=== PATIENT | female | born 1955 | race Caucasian/White ===

== ENCOUNTER 2016-11-24 12:36 | Emergency (ER) | payer MEDICARE, MEDICAID ==
--- NOTE | ~2016-11-24 | ER ---
PATIENT'S NAME: TROY DAIGLE [facility] AGE: 61 Y [address] ROOM: [place] [address] LOCATION: ED ADMIT DATE: 11/24/2016 ER/Outpatient Report DISCHARGE DATE: FAMILY PHYSICIAN: PHYSICIAN, NO ATTENDING PHYSICIAN: Eric Nolasco TIME OF ADMISSION: 12:36. TIME OF EVALUATION: 12:55. CHIEF COMPLAINT: Anxiety, tick bite. HISTORY OF PRESENT ILLNESS: Troy is a 61-year-old female, who presented to the Emergency Room with feelings of increased anxiety, a tick bite that is concerning her. The patient, upon admission, is crying, she is talking in circles about different things. She does have a manager bakery in [place], Dr. Harvey, who she did see last week. He did give her an injection into her thumb, and she does have quite a bit of arthritis. He also noticed that she had a tick bite, this was removed by someone at [facility] here in [place] two or three days prior to that. He did mention just continue to watch this, and follow up with it. The patient reports that she sees Dr. Asencio at [facility] for her psychiatric medications. In the last month, he did start her on a new medication, Brintellix 20 mg daily. She is wondering if this is having an adverse affect on her, she does feel increased anxiety. The patient normally takes Klonopin 1 mg p.o. t.i.d. Her last dose was at 11 a.m. The patient denies any suicidal thoughts, plans, or ideas. She also complains of some discomfort to bilateral jaws, difficult to open her mouth. She denies any chest pain, shortness of breath, dizziness, or feeling lightheaded. The patient has no prior history of heart disease. PAST MEDICAL HISTORY: 1. Fibromyalgia. 2. Panic disorder. 3. Depression. 4. GERD. 5. Postoperative cataract surgery. 6. Hypertension. 7. Arthritis. PATIENT'S NAME: TROY DAIGLE [facility] AGE: 61 Y [address] ROOM: [place] [address] LOCATION: [facility] ADMIT DATE: 11/24/2016 ER/Outpatient Report DISCHARGE DATE: FAMILY PHYSICIAN: PHYSICIAN, NO ATTENDING PHYSICIAN: Eric Nolasco ALLERGIES: 1. IMITREX. 2. CODEINE. CURRENT MEDICATIONS: 1. Dexilant 60 mg one p.o. daily. 2. Norvasc 5 mg one p.o. daily. 3. Klonopin 1 mg t.i.d. 4. Hyzaar/hydrochlorothiazide 100/25 one p.o. daily. 5. Lamictal 200 mg one p.o. daily. 6. Meloxicam 15 mg one p.o. daily. 7. Brintellix 20 mg one p.o. daily. SOCIAL HISTORY: The patient denies any smoking, alcohol use, or drug use. FAMILY HISTORY: Not obtained. REVIEW OF SYSTEMS: All systems were reviewed by myself, and are negative with exception of those noted in the HPI. PHYSICAL EXAMINATION: VITAL SIGNS: Current height is 5 feet 7 inches and current weight is 96.2 kg. Initial blood pressure was 213/80; upon re-examination, it was 169/72, pulse was 68, respirations were within normal limits, and she is 98% on room air. GENERAL: Troy is alert and oriented x4, cooperative, and quite tearful. She tells myself she just feels super anxious, and not exactly sure why she is here. She did see her therapist at 11 a.m. today, this was helpful. Skin overall was within normal limits. EYES: Sclerae are nonicteric. Pupils are equal, round, and reactive to light. EOMs are intact. NOSE: Nares are patent. No congestion is noted. MOUTH AND THROAT: Oropharynx is clear. Tongue is midline. Her throat is just a little irritated, but denies any soreness. To her TMJ bilaterally, there is some discomfort particularly with opening and closing. I do not feel or hear any popping. Upon palpation of the rest of her jaw, it is nontender. NECK: Supple. No lymphadenopathy. The patient denies any vertebral tenderness. CHEST AND LUNGS: Lung sounds are clear throughout. HEART: Regular rate and rhythm without murmur. ABDOMEN: Soft and nontender. NEUROLOGIC: Cranial nerves II through XII are grossly intact. Deep tendon reflexes were 2+. Mood and affect, the patient is very tearful. She does PATIENT'S NAME: TROY DAIGLE [facility] AGE: 61 Y [address] ROOM: [place], [place] [address] LOCATION: [facility] ADMIT DATE: 11/24/2016 ER/Outpatient Report DISCHARGE DATE: FAMILY PHYSICIAN: PHYSICIAN, NO ATTENDING PHYSICIAN: Eric Nolasco answer questions appropriately. She is tracking, but does tend to revisit things. There are no abnormal motor movements. SKIN: To her right posterior rib area, she has a small scab, where the tick was removed. There were no indications of infection. LABORATORY DATA AND DIAGNOSTIC IMAGING: Please note, there were no labs or x-rays performed at this visit. ASSESSMENT: 1. Panic attack. 2. Recent tick bite, healing. 3. Temporomandibular joint pain, bilaterally. PLAN: I did consult with Dr. Nolasco, 2 mg of Ativan p.o. x1 was given. She did rest, and did fall off to sleep for about 30 to 35 minutes. We re-checked her blood pressure, and it was much better. She was complaining of a mild headache, Tylenol 650 mg p.o. x1 was given. She does have a friend named Jennifer, who is a [employer] member who was to meet with her to 02:30 today, and she did just come to the ER. She will go ahead and take her home. I did call [facility], and Dr. Asencio is on vacation, but I did line up an appointment for her at 11:15 on Monday with Kita Goldstein APRN-MICHELET. The patient will continue with the Klonopin one p.o. t.i.d., and use an additional 0.5 mg if needed. If things do get worse, she may need to return to the ER. I do wonder if this new medicine could be contributing, it does not sound like there are any new stressors in her life. The patient's blood pressure is improved. Headache is still there, but neurologically, there are no abnormal symptoms present. The patient is dismissed with Jennifer, and will follow up with Kita on Monday. GRETA WESTBROOK APRN FOR MD LJ BROOKS/candi /[id number] d: 11/24/162052 t: 12/05/16701, OUTPATIENT REPORT
[~2016-11-24 12:36] MED LIST: ABILIFY5 MG PO; ASPIRIN LO-DOSE81 MG PO; ASPIRIN325 MG PO; BUSPAR10 MG PO; CELEBREX200 MG PO; DILAUDID2 MG PO; FLEXERIL10 MG; HYZAAR 100-251 EACH PO; IBUPROFEN800 MG; IBUPROFEN800 MG PO; KLONOPIN1 MG PO; LAMICTAL100 MG PO; LAMICTAL200 MG PO; LASIX40 M1 PO; NEXIUM40 MG PO; NORVASC10 MG; NORVASC5 MG PO; OXYCONTIN EXTEN10 MG PO; PAIN RELIEF650 MG PO; PERCOCET 5-3251 EACH PO; ULTRAM50 MG PO; VALIUM2 MG PO; VIIBRYD20 MG PO; VOLTAREN 1% GE100 GM TOP; XARELTO10 MG PO
== END 2016-11-24 14:50 | disposition disaster alternative care site (69) ==
LOC: GMED 12:36
DX: F41.0 Panic disorder [episodic paroxysmal anxiety] (principal); M26.623 Arthralgia of bilateral temporomandibular joint; S20.96XD Insect bite (nonvenomous) of unspecified parts of thorax, subsequent encounter; M79.7 Fibromyalgia; F32.9 Major depressive disorder, single episode, unspecified; K21.9 Gastro-esophageal reflux disease without esophagitis; I10 Essential (primary) hypertension; M19.91 Primary osteoarthritis, unspecified site; Z98.49 Cataract extraction status, unspecified eye; Z88.5 Allergy status to narcotic agent; Z88.8 Allergy status to other drugs, medicaments and biological substances; Z79.899 Other long term (current) drug therapy

== ENCOUNTER 2016-11-25 08:31 | Emergency (ER) | payer MEDICARE, MEDICAID ==
--- NOTE | ~2016-11-25 | ER ---
PATIENT'S NAME: TROY DAIGLE [facility] AGE: 61 Y [address] ROOM: [place] [address] LOCATION: ED ADMIT DATE: 11/25/2016 ER/Outpatient Report DISCHARGE DATE: 11/25/2016 FAMILY PHYSICIAN: Radha Alexis APRN ATTENDING PHYSICIAN: Eric Nolasco CHIEF COMPLAINT: Headache and anxiousness. HISTORY OF PRESENT ILLNESS: The patient has had a headache for several days. She was here yesterday for similar. She was given Ativan yesterday, felt better, and was discharged. However, her headache today has worsened, is included in both jaws, and radiates down her left side, but is also filled in both shoulders and at the jaw on both sides. She has no chest pain or shortness of breath associated with this. She states that she found a tick on her recently, and it was reported to be quite large. She did keep the tick in a jar, and is in fact, raising it at this time. She is very anxious and concerned. Her review of systems is constantino positive. It is very difficult to get a clear story from her. PAST MEDICAL HISTORY: Documented on the record and reviewed by me. SOCIAL HISTORY: Documented on the record and reviewed by me. MEDICATIONS: Documented on the record and reviewed by me. ALLERGIES: DOCUMENTED ON THE RECORD AND REVIEWED BY ME. REVIEW OF SYSTEMS: All systems were reviewed and are negative except as noted in the HPI. PHYSICAL EXAMINATION: VITAL SIGNS: Blood pressure is 153/74, pulse is 68, respiratory rate is 20, temperature is 98.1, and SpO2 is 99% on room air. Pain is 7/10. GENERAL: A female appearing older than stated age, sitting upright on exam table and emotional, but not in respiratory distress. No outward signs of pain. NEUROLOGIC: Awake and alert. GCS is 14. She is slightly confused. She has very rapid thoughts, and is circumferential in her answering of questions. She is not tangential. Her affect is labile, and her thought content is PATIENT'S NAME: TROY DAIGLE [facility] AGE: 61 Y [address] ROOM: [place] [address] LOCATION: ED ADMIT DATE: 11/25/2016 ER/Outpatient Report DISCHARGE DATE: 11/25/2016 FAMILY PHYSICIAN: Radha Alexis APRN ATTENDING PHYSICIAN: Eric Nolasco unusual. She denies suicidal or homicidal ideation. She denies hallucinations. HEENT: Normocephalic and atraumatic. Eyes are PERRL. Oropharynx is clear. NECK: Supple. Trachea is midline. CHEST: Heart is regular rate and rhythm with no murmurs. LUNGS: Clear to auscultation bilaterally with no rhonchi, wheezes, or rales. ABDOMEN: Soft, nontender, and nondistended. No rebound or guarding or masses. BACK: Normal to inspection and palpation. No CVA tenderness. EXTREMITIES: Warm and well perfused with no appreciable edema. SKIN: On the right posterior back was notable for prior reported tick site with no surrounding rashes. Otherwise, grossly intact with no rashes. LABORATORY DATA AND X-RAYS: Head CT was obtained and unremarkable per Radiology review. The labs were obtained. No appreciable abnormality of CMS that is contributing to her current presentation. CBC was notable for anemia with hemoglobin of 9.6. IMPRESSION: 1. Headache. 2. Anxiety. 3. Anemia of undetermined etiology. EMERGENCY DEPARTMENT COURSE: The patient was seen and evaluated as above. She was treated with fluids, Toradol, Compazine, and Benadryl. She began to feel better overall, but had some akathisia from the Compazine despite Benadryl. She was given a milligram of Ativan and discharged home, with marked improvement in her symptoms. I do not think it would be most pruitt to give her steroids at this time risking worsening of her mental status. I have recommended that she continue with her prescribed doses of medications, and follow up on Monday with Dr. Asencio, her psychiatrist as scheduled. MD MARÍA BROOKS/candi /[id number] d: 11/25/162057 t: 12/05/1602, OUTPATIENT REPORT
[2016-11-25 09:59] LABS: BASOPHIL % 0.2 %; EOSINOPHIL # 0.1 K/uL (0.0-0.5); EOSINOPHIL % 1.5 %; HEMATOCRIT 30.3 % (33.0-46.0); HEMOGLOBIN 9.6 g/dL (10.0-15.0); IMMATURE GRANULOCYTE % 0.1 %; LYMPHOCYTE # 1.1 K/uL (0.8-4.0); MCH 26.2 pg (27.0-34.0); MCHC 31.7 gm/dL (32.0-36.5); MCV 82.6 fl (83.0-98.0); MONOCYTE # 0.6 K/uL (0.0-1.0); MONOCYTE % 7.6 %; MPV 10.3 fl (9.4-12.4); NEUTROPHIL # (ANC) 6.4 K/uL (1.8-7.8); NEUTROPHIL % 77.6 %; NRBC % 0 /100WBC (0-0.00); PLATELET COUNT 300 K/uL (150-450); RBC 3.67 M/uL (3.50-5.50); RDW-CV 17.6 % (11.9-14.6); WBC 8.3 K/uL (4.0-11.0)
[2016-11-25 10:15] LABS: ALBUMIN 3.1 gm/dL (3.5-5.0); ALK PHOS 96 IU/L (33-138); ALT 18 IU/L (12-78); ANION GAP 9.2 (10.0-19.0); AST 31 IU/L (10-40); BLOOD UREA NITROGEN 11 mg/dL (6-24); CALCIUM 8.5 mg/dL (8.5-10.5); CHLORIDE 108 mMol/L (96-110); CO2 28 mMol/L (22-32); CREATININE 0.8 mg/dL (0.5-1.1); ESTIMATED GFR (MDRD EQUATION) > 60; POTASSIUM 4.2 mMol/L (3.7-5.1); SODIUM 141 mMol/L (135-145); TOTAL BILIRUBIN 0.4 mg/dL (0.0-1.5); TOTAL PROTEIN 7.3 g/dL (6.0-8.4)
== END 2016-11-25 10:36 | disposition disaster alternative care site (69) ==
LOC: GMED 08:31
PROVIDERS: Emergency Medicine
DX: R51 Headache (principal); D64.9 Anemia, unspecified; F41.9 Anxiety disorder, unspecified; M79.7 Fibromyalgia; I10 Essential (primary) hypertension; F32.9 Major depressive disorder, single episode, unspecified; K21.9 Gastro-esophageal reflux disease without esophagitis; M19.91 Primary osteoarthritis, unspecified site; Z88.5 Allergy status to narcotic agent; Z88.8 Allergy status to other drugs, medicaments and biological substances; Z79.899 Other long term (current) drug therapy; Z98.890 Other specified postprocedural states
CPT/HCPCS: J0780; J1200; J1885; J2060; J7030

== ENCOUNTER 2016-12-08 06:54 | Emergency (ER) | payer MEDICARE, MEDICAID ==
--- NOTE | ~2016-12-08 | ER ---
PATIENT'S NAME: TROY DAIGLE [facility] AGE: 61 Y [address] ROOM: [place] [address] LOCATION: ED ADMIT DATE: 12/08/2016 ER/Outpatient Report DISCHARGE DATE: 12/08/2016 FAMILY PHYSICIAN: Roddy Ríos MD ATTENDING PHYSICIAN: Cricket Mckenzie TIME OF ARRIVAL: 0654 hours. TIME OF EVALUATION: 0658 hours. CHIEF COMPLAINT: Neck pain. HISTORY OF PRESENT ILLNESS: The patient is a 61-year-old female who presents to the emergency department today with a chief complaint of neck pain. She reports it has been going on for multiple years. She reports she has a long history of accidents from horses and other injuries. She reports she is already scheduled to see Dr. Hair next week and she would just like some medications to get her through to see him. She does report she stopped using fentanyl patches about 3 to 4 weeks ago. She has seen Dr. Weems for these in the past. She has tried heat, Voltaren gel, and ibuprofen. She denies any fevers or chills. Does have some nausea. No vomiting. No diarrhea or constipation. No suicidal ideation. No homicidal ideation. No chest pain. No shortness of breath. No abdominal pain. PAST MEDICAL HISTORY: Fibromyalgia, panic disorder, depression, gastroesophageal reflux disease, hypertension, and arthritis. PAST SURGICAL HISTORY: Cataracts. SOCIAL HISTORY: The patient denies any tobacco, alcohol, or illicit drug use. ALLERGIES: IMITREX AND CODEINE. MEDICATIONS: 1. Dexilant. 2. Norvasc. 3. Klonopin. PATIENT'S NAME: TROY DAIGLE [facility] AGE: 61 Y [address] ROOM: [place], [place] [address] LOCATION: ED ADMIT DATE: 12/08/2016 ER/Outpatient Report DISCHARGE DATE: 12/08/2016 FAMILY PHYSICIAN: Roddy Ríos MD ATTENDING PHYSICIAN: Cricket Mckenzie 4. Hyzaar. 5. Hydrochlorothiazide. 6. Lamictal. 7. Meloxicam. 8. Brintellix. PRIMARY CARE DOCTOR: Jose Rafael Weems MD REVIEW OF SYSTEMS: All systems are reviewed by myself and are negative with the exception of those discussed in the HPI and Past Medical History. PHYSICAL EXAMINATION: VITAL SIGNS: Weight 91.6 kg. Blood pressure 151/78, pulse 86, respiratory rate 16, temperature 99.4, and oxygen saturation 96% on room air. GENERAL: The patient is a 61-year-old female who appears stated age, crying, well developed. HEENT: Head is normocephalic and atraumatic. Pupils are equal, round, and reactive to light. Extraocular motions are intact. Nares with clear discharge bilaterally. TMs are clear. Oropharynx is clear. NECK: Supple. There is no tenderness to palpation. She has good range of motion. CARDIOVASCULAR: Regular rate and rhythm. No murmurs, rubs, or gallops. LUNGS: Clear to auscultation bilaterally. No wheezes, rales, or rhonchi. ABDOMEN: Soft, nontender, and nondistended. No rebound, rigidity, or guarding. MUSCULOSKELETAL: The patient moves all 4 extremities. SKIN: Warm and dry. LABORATORY AND X-RAY DATA: None. IMPRESSION: 1. Acute on chronic neck pain. 2. Initial visit. EMERGENCY DEPARTMENT COURSE: The patient was brought back to the examination room. Seen and evaluated by myself. History and physical performed as described above. I have discussed the results of the history and physical with the patient. She does have an appointment with Dr. Hair. I have asked that she make an appointment. I have written a prescription for Skelaxin as well as a small dose of prednisone. I have discussed return to care instructions including worsening symptoms or any other concerns, to return to the emergency department as soon PATIENT'S NAME: TROY DAIGLE [facility] AGE: 61 Y [address] ROOM: [place], [place] [address] LOCATION: [facility] ADMIT DATE: 12/08/2016 ER/Outpatient Report DISCHARGE DATE: 12/08/2016 FAMILY PHYSICIAN: Roddy Ríos MD ATTENDING PHYSICIAN: Cricket Mckenzie as possible. I have also asked that she follows up with Dr. Roddy Ríos and Dr. Weems. The patient is agreeable. She is without further questions at this time. DISPOSITION,: The patient is discharged to home in good condition. DO VIOLETTA HOBSON/modl /[id number] d: 12/08/16 1403 t: 12/08/16 1439, OUTPATIENT REPORT
== END 2016-12-08 07:45 | disposition disaster alternative care site (69) ==
LOC: GMED 06:54
DX: M54.2 Cervicalgia (principal); G89.29 Other chronic pain; K21.9 Gastro-esophageal reflux disease without esophagitis; F32.9 Major depressive disorder, single episode, unspecified; I10 Essential (primary) hypertension; M79.7 Fibromyalgia; F41.0 Panic disorder [episodic paroxysmal anxiety]; Z98.49 Cataract extraction status, unspecified eye; Z88.5 Allergy status to narcotic agent; Z88.8 Allergy status to other drugs, medicaments and biological substances; Z79.899 Other long term (current) drug therapy; Z87.828 Personal history of other (healed) physical injury and trauma

== ENCOUNTER 2016-12-10 17:20 | Inpatient (IN) | payer MEDICARE, MEDICAID ==
[~2016-12-10] VITALS: Ht 170.2 cm; Wt 91.5 kg
--- NOTE | ~2016-12-10 | ER ---
PATIENT'S NAME: TROY DAIGLE [facility] AGE: 61 Y [address] ROOM: [address] [address] [place] [facility] [place] DATE: 12/10/2016 ER/Outpatient Report DISCHARGE DATE: FAMILY PHYSICIAN: Roddy Ríos MD ATTENDING PHYSICIAN: Roddy Ríos HISTORY OF PRESENT ILLNESS: Troy Daigle is a 61-year-old female, who was initially evaluated by Dr. Nolasco, please refer to his dictation. At 6:00 p.m., shift change, I assumed care. The patient is here for neck and jaw pain, right sided. When I asked her how long it has been present, she says "I have always had neck pain." She was on a fentanyl patch, but stopped approximately 3 to 4 weeks ago. She is scheduled to have an MRI done and scheduled to see Dr. Hair next week. The patient presented stating that she was not going to live here, she was going to be admitted until she had answers and her pain was controlled. The patient denies any fall or injury acutely, but she has had repeated neck injuries in the past. She has been seeing a chiropractor in [facility] as well. The patient was seeing Dr. Weems, but now is seeing Dr. Ríos. She has a history of anxiety. She stopped taking her fentanyl approximately 1 month ago. She did have significant anxiety after that, and then had been taking clonidine, but thought she was taking too much, so stopped that "a few days ago." She did not taper it. When I obtained her history, she is crying consistently. PAST MEDICAL HISTORY: ALLERGIES: TO CODEINE AND IMITREX. CURRENT MEDICATIONS: 1. Norvasc 5 mg daily. 2. Dexilant 60 mg daily. 3. She was on Klonopin 1 mg t.i.d., but quit cold turkey "a few days ago.". 4. Hyzaar/hydrochlorothiazide 100/25 daily. 5. Lamictal 200 mg daily. 6. Brintellix 20 mg daily. 7. Skelaxin prescribed here in the emergency room and was replaced by pharmacy for an equivalent. 8. Gabapentin prescribed by Dr. Ríos yesterday and prednisone 20 mg daily prescribed on the . MEDICAL PROBLEMS: Hypertension, chronic back pain, headaches, depression and anxiety. PRIOR SURGERIES: Gastric bypass surgery and appendectomy. PATIENT'S NAME: TROY DAIGLE [facility] AGE: 61 Y [address] ROOM: [id number] [place], [place] [address] [place] [facility] [place] DATE: 12/10/2016 ER/Outpatient Report DISCHARGE DATE: FAMILY PHYSICIAN: Roddy Ríos MD ATTENDING PHYSICIAN: Roddy Ríos SOCIAL HISTORY: The patient lives here in [place]. She is disabled. Tobacco use, denies. Alcohol use, denies. Drug use, she uses occasional marijuana. FAMILY HISTORY: No pertinent family history identified. REVIEW OF SYSTEMS: All systems reviewed and negative other than what is noted in the HPI. PHYSICAL EXAMINATION: VITAL SIGNS: Height 5 feet 7 inches, weight 90.5 kg. Blood pressure 154/77, pulse 77, respirations 18, temperature 100, and saturations 96% on room air. GENERAL: A 61-year-old female, in mild distress as she is crying. HEENT: Head: Normocephalic, atraumatic. Eyes: Pupils equal and reactive to light and accommodation. Extraocular movements intact. Nose: Mucosa pink. No lesions. Mouth: No lesions. Pharynx benign. NECK: Supple. No lymphadenopathy. No nuchal rigidity. LUNGS: Clear to auscultation. Breath sounds are equal. HEART: Regular rate and rhythm. ABDOMEN: Soft, nondistended, nontender. SKIN: [place], warm, and dry. No lesions or rashes noted. NEURO: No focal deficit. LABORATORY DATA AND X-RAYS: Initially, labs had been ordered and a CT of her cervical spine as well as an EKG. EKG: Normal sinus rhythm at 76 beats per minute. No acute ST elevation or depression. No prior EKG available for comparison. Lactate 1.8. Hemoglobin 10.3, hematocrit 32.7, platelets 332, white count 13.4 with 79% neutrophils. INR 0.92. CRP elevated at 15.70, so I did add blood cultures x2 and those are pending. Sodium 133, potassium 3.5, chloride 101, CO2 of 24, BUN 30, creatinine 1.1, blood sugar 96. Liver enzymes normal. CPK-MB less than 0.5, troponin I less than 0.040. Procalcitonin elevated at 1.59. Sedimentation rate elevated at 106. Head CT without contrast, no acute findings per Radiology. Cervical spine CT without contrast: No acute fracture, reversal of usual lordotic curve, degenerative changes at C5-C6 and C6-C7. UA: Specific gravity 1.010, pH 6.0, trace of leukocytes, 20 to 50 white cells, 2 to 5 red cells, 0 to 2 epithelial cells, moderate bacteria, and white blood cell clumps are present. Urine culture pending. IMPRESSION AND PLAN: 1. Right neck pain. 2. Degenerative disk disease, cervical spine. 3. Anxiety and depression. The patient recently acutely stopped her PATIENT'S NAME: TROY DAIGLE [facility] AGE: 61 Y [address] ROOM: [place] [address] [place]: [facility] [place]MIT DATE: 12/10/2016 ER/Outpatient Report DISCHARGE DATE: FAMILY PHYSICIAN: Roddy Ríos MD ATTENDING PHYSICIAN: Roddy Ríos Klonopin use and recently stopped her fentanyl patch. She may have some component of withdrawal. The patient was given Ativan 0.5 mg IV here in the emergency room. 4. Leukocytosis and possible urinary tract infection. Antibiotics per Dr. Jacinto. Cultures have been drawn. Morphine 5 mg was given for pain with minimal relief, Zofran 4 mg IV, ibuprofen 400 mg p.o., and Ativan 0.5 mg. The patient will be admitted per Dr. Jacinto who evaluated the patient in the emergency room. BRITTA OLSON MD CAR/modl /[id number] d: 12/11/16802 t: 12/12/16309, OUTPATIENT REPORT
--- NOTE | ~2016-12-10 | HP ---
PATIENT'S NAME: TROY DAIGLE [facility] AGE: 61 Y [address] ROOM: [place] [address] [place] [facility] [place]: 12/10/2016 History & Physical DISCHARGE DATE: FAMILY PHYSICIAN: Roddy Ríos MD ATTENDING PHYSICIAN: Roddy Ríos DATE OF SERVICE: HISTORY OF PRESENT ILLNESS: This is a 61-year-old white female, who has been having increasing neck pain with right-sided radiation recently. She states she has had a significant history in the past of repeated neck injuries with degenerative disk disease. She has been seen by two chiropractors in [facility]. She has previously been on fentanyl patch from Dr. Weems, but now sees Dr. Ríos. She stopped the fentanyl approximately one month ago, and had significant anxiety attacks after stopping it. She wanted to stop it because she thought she was taking too much medications. She also relates a similar situation with her Klonopin. She had been taking Klonopin for quite sometime, and thought she was taking too much, so she stopped it a week ago. She has had increased tearfulness and anxiety, and her neck pain has worsened. She was recently seen by Dr. Roddy Ríos, and actually yesterday was started on gabapentin 300 mg twice per day and has an MRI set up at [facility] on 12/14/2016 for her cervical spine. She also has an appointment with Dr. Hair later in the month. She was seen in the Emergency Room for increasing neck pain. CT scan of the head was negative. CT of the neck showed degenerative disk disease, most pronounced at C5-C6 and C6-C7. Interestingly, her CRP was greater than 15 and her sedimentation rate was more than 100. She was found to have pyuria and bacteriuria, and her white count was elevated at 13.4. On further questioning, she states she has a history of positive rheumatoid factor, and has been seen by Dr. Harvey in the past for some sort of arthritis. She states she has had increasing amount of hand pain and swelling in the last few weeks. ALLERGIES TO MEDICATIONS: Include morphine and Imitrex. PAST MEDICAL HISTORY: Significant for 1. GERD. 2. Hypertension. 3. Depression. 4. Chronic neck pain. MEDICATIONS: Include 1. Dexilant 60 mg per day. PATIENT'S NAME: TROY DAIGLE [facility] AGE: 61 Y [address] ROOM: [place] [address] [place] [facility] [place]: 12/10/2016 History & Physical DISCHARGE DATE: FAMILY PHYSICIAN: Roddy Ríos MD ATTENDING PHYSICIAN: Roddy Ríos 2. Norvasc 5 mg per day. 3. Hyzaar 100/25 daily. 4. Lamictal 200 mg per day. 5. Brintellix 20 mg per day. SOCIAL HISTORY: She states that she does not drink alcohol and quit smoking more than 10 years ago. She denies any recent falls. REVIEW OF SYSTEMS: CONSTITUTIONAL: No recent weight gain or weight loss. No fevers or chills. GENITOURINARY: No urinary complaints. CARDIOPULMONARY: No shortness of breath or chest discomfort. PHYSICAL EXAMINATION: GENERAL: She is awake, alert, and tearful. She denies suicidal or homicidal ideations. HEENT: Pupils are equal, round, and reactive to light and accommodation. NECK: Supple with slight right-sided paraspinous muscle tenderness. LUNGS: Clear. HEART: Regular rate and rhythm. ABDOMEN: Soft, nontender, and nondistended. EXTREMITIES: Lower extremities without edema. LABORATORY STUDIES: As described above. IMPRESSION: 1. Right neck pain/degenerative disk disease at multi levels. 2. Anxiety and depression. Recently stopped Klonopin. She may have some withdrawal manifestations. 3. Leukocytosis and pyuria. We will start antibiotics. 4. Increased sedimentation rate and C-reactive protein with history of positive rheumatoid factor and seen by Rheumatology. PLAN: To admit on her regular medications. We will give her a gram of Rocephin tonight and start this daily. We will give her Solu-Medrol x3 doses, and use morphine, Heppner, and Zofran for comfort. We will re-check labs tomorrow. Her urine has been cultured. Dr. Roddy Ríos is to assume care when available. LEV EPSTEIN MD PATIENT'S NAME: TROY DAIGLE [facility] AGE: 61 Y [address] ROOM: [address] [address] [place] [facility] [place]: 12/10/2016 History & Physical DISCHARGE DATE: FAMILY PHYSICIAN: Roddy Ríos MD ATTENDING PHYSICIAN: Roddy Ríos TLP/modl /[id number] D: [id number] T: [id number] HISTORY & PHYSICAL
--- NOTE | ~2016-12-10 | ER ---
PATIENT'S NAME: TROY DAIGLE [facility] AGE: 61 Y [address] ROOM: [address] [address] LOCATION: [facility] ADMIT DATE: 12/10/2016 ER/Outpatient Report DISCHARGE DATE: FAMILY PHYSICIAN: Roddy Ríos MD ATTENDING PHYSICIAN: Roddy Ríos CHIEF COMPLAINT: Neck and right face pain. HISTORY OF PRESENT ILLNESS: Ms. Daigle notes that she has had face and neck pain particularly bad for the last week or so, significantly worse over the last 2 to 3 days. The pain in the jaw and side of the face is relatively new over the course of the last week. She always has some neck pain. She has seen her primary care physician twice yesterday in addition to a chiropractor who did perform some sort of manipulation, but it was too painful and thus did not complete it. She also reports that there were some x-rays that showed significant neck problems and she was seen in the ER for this recently as well. She is very concerned that our workup will not show anything because in her past she had an appendicitis that took months to diagnose and caused her some issues. She is wanting to be admitted for this issue today. She has tried steroids, Benadryl, Toradol and ibuprofen, but those things did not seem to help. She has had some marijuana today and that seemed to give her some relief but once it wore off, she was feeling even worse than before. PAST MEDICAL HISTORY: Documented on the record and reviewed by me. SOCIAL HISTORY: Documented on the record and reviewed by me. MEDICATIONS: Documented on the record and reviewed by me. ALLERGIES: DOCUMENTED ON THE RECORD AND REVIEWED BY ME. REVIEW OF SYSTEMS: All systems were reviewed and negative except as noted in the HPI. PHYSICAL EXAMINATION: VITAL SIGNS: Blood pressure 154/77, pulse is 77, respiratory rate is 18, temp is 100.0, SpO2 is 96% on room air. Pain is rated at 10/10. GENERAL: Elderly female, appearing older than stated age, sitting semirecumbent on the exam chair in obvious pain, no respiratory distress, but PATIENT'S NAME: TROY DAIGLE [facility] AGE: 61 Y [address] ROOM: [address] [address] LOCATION: [facility] ADMIT DATE: 12/10/2016 ER/Outpatient Report DISCHARGE DATE: FAMILY PHYSICIAN: Roddy Ríos MD ATTENDING PHYSICIAN: Roddy Ríos significant emotional disturbance as well. NEUROLOGIC: The patient is awake and alert. GCS is 15. Speech is clear. No asymmetry on exam. There is no drooping of the right face or findings consistent with cranial nerve abnormalities. HEENT: Normocephalic, atraumatic. The TMs are difficult to visualize secondary to cerumen, but the canals do not appear to be abnormal. The eyes are PERRL. The oropharynx is clear. NECK: Supple. Trachea is midline. The right moravian is not tender to palpation over the temporal artery. CHEST: Heart is regular rate and rhythm with no murmurs. LUNGS: Grossly clear to auscultation bilaterally with no rhonchi, wheezes, or rales. ABDOMEN: Soft, nontender, and nondistended. BACK: Normal to inspection and palpation. No spinal tenderness. EXTREMITIES: Warm, well formed, well perfused. No obvious abnormalities otherwise. SKIN: Appears to be intact. No evidence of rashes. LABORATORY DATA: Labs and x-rays are pending at this time. CT of the C-spine in addition to CBC, CMS, inflammatory markers, lactate, troponin, coags, EKG are all pending. IMPRESSION: Right-sided neck, face and jaw pain. EMERGENCY DEPARTMENT COURSE: The patient was seen and evaluated as above. IV was established. She was given Zofran and morphine to help with her pain. Workup was initiated as above for possible nerve compression as well as significant infectious or inflammatory process. No laboratory results are back at this time. The patient is borderline febrile. She is not consistent with meningitis. Temporal giant-cell arteritis appears to be less likely at this time. Handoff was given to Dr. Ayala at 1800 hours with a plan to follow up imaging and labs and to disposition her accordingly. I think this is unlikely to be an atypical presentation of acute coronary syndrome based on the time frame. However EKG and troponin have been ordered. Please see Dr. Ayala's dictation for completion of encounter. MD MARÍA BROOKS/candi PATIENT'S NAME: TROY DAIGLE [facility] AGE: 61 Y [address] ROOM: [place] [address] LOCATION: [facility] ADMIT DATE: 12/10/2016 ER/Outpatient Report DISCHARGE DATE: FAMILY PHYSICIAN: Roddy Ríos MD ATTENDING PHYSICIAN: Roddy Ríos /[id number] d: 12/11/16 1319 t: 12/27/16 1214, OUTPATIENT REPORT
[2016-12-10 18:38] LABS: BASOPHIL % 0.1 %; EOSINOPHIL % 0.3 %; HEMATOCRIT 32.7 % (33.0-46.0); HEMOGLOBIN 10.3 g/dL (10.0-15.0); IMMATURE GRANULOCYTE # 0.1 K/uL (0.0-0.3); IMMATURE GRANULOCYTE % 0.7 %; LYMPHOCYTE # 1.1 K/uL (0.8-4.0); LYMPHOCYTE % 8.5 %; MCH 25.7 pg (27.0-34.0); MCHC 31.5 gm/dL (32.0-36.5); MCV 81.5 fl (83.0-98.0); MONOCYTE # 1.4 K/uL (0.0-1.0); MONOCYTE % 10.6 %; MPV 10.7 fl (9.4-12.4); NEUTROPHIL # (ANC) 10.7 K/uL (1.8-7.8); NEUTROPHIL % 79.8 %; NRBC % 0 /100WBC (0-0.00); PLATELET COUNT 332 K/uL (150-450); RBC 4.01 M/uL (3.50-5.50); RDW-CV 17.6 % (11.9-14.6); WBC 13.4 K/uL (4.0-11.0)
[2016-12-10 18:46] LABS: INR - (THERAPEUTIC) 0.92 (0.92-1.07); PROTIME 9.6 SECONDS (9.8-11.4); PTT 26 SECONDS (25-32)
[2016-12-10 18:56] LABS: ALK PHOS 97 IU/L (33-138); ALT 16 IU/L (12-78); ANION GAP 11.5 (10.0-19.0); AST 16 IU/L (10-40); BLOOD UREA NITROGEN 30 mg/dL (6-24); CALCIUM 8.2 mg/dL (8.5-10.5); CHLORIDE 101 mMol/L (96-110); CO2 24 mMol/L (22-32); CREATININE 1.1 mg/dL (0.5-1.1); ESTIMATED GFR (MDRD EQUATION) 51; POTASSIUM 3.5 mMol/L (3.7-5.1); SODIUM 133 mMol/L (135-145); TOTAL BILIRUBIN 0.3 mg/dL (0.0-1.5); TOTAL PROTEIN 8.2 g/dL (6.0-8.4)
[2016-12-10 20:39] LABS: BILIRUBIN URINE NEGATIVE (NEGATIVE); BLOOD URINE 10 /UL (NEGATIVE); COLOR URINE YELLOW (YELLOW); GLUCOSE URINE NEGATIVE (NEGATIVE); KETONE URINE NEGATIVE (NEGATIVE); LEUKOCYTES URINE 25 /UL (NEGATIVE); NITRITE URINE NEGATIVE (NEGATIVE); PROTEIN URINE 100 mg/dL (NEGATIVE); TURBIDITY URINE CLEAR (CLEAR); UROBILINOGEN URINE NORMAL (NORMAL)
[2016-12-10 20:52] LABS: BACTERIA URINE MODERATE (NEGATIVE)
[2016-12-10 20:53] LABS: EPITHELIAL URINE 0-2 #/HPF (NEGATIVE); WBC URINE 20-50 #/HPF (NEGATIVE)
[2016-12-10 20:54] LABS: WBC CLUMPS URINE MODERATE (NEGATIVE)
--- NOTE | 2016-12-11 03:34 | NUR ---
Significant Event: 61 year old admitted for chronic neck pain that radiates to the right side of her face. Right side of face slightly edematous. WBC was 3.4 Pro-Simeon 1.54 and ESR 106. History of depression, bipolar disorder, mood swings and anxiety. Doesn't smoke or use alcohol but does state she smokes alittle marijuana when it is available. Very talketive when admitted to floor, but was trouble tracking and getting to the point, slightly legarthic. Orientated and pretty stable on her feet, however, states she has fallen many times before. Started on Rocephin IV and 3 doses of Solumedrol Follow up: Labs in am.
[2016-12-11] MEDS ORDERED: TRINTELLIX 10 PO (04:05)
[2016-12-11] MEDS ORDERED: DEXILANT60 MG PO (04:09)
[2016-12-11 05:04] LABS: HEMATOCRIT 29.7 % (33.0-46.0); HEMOGLOBIN 9.1 g/dL (10.0-15.0); MCH 25.4 pg (27.0-34.0); MCHC 30.6 gm/dL (32.0-36.5); MPV 10.5 fl (9.4-12.4); PLATELET COUNT 273 K/uL (150-450); RBC 3.58 M/uL (3.50-5.50); RDW-CV 17.8 % (11.9-14.6); WBC 13.3 K/uL (4.0-11.0)
[2016-12-11 05:29] LABS: ALBUMIN 2.4 gm/dL (3.5-5.0); ANION GAP 10.3 (10.0-19.0); CALCIUM 7.9 mg/dL (8.5-10.5); CREATININE 1.5 mg/dL (0.5-1.1); POTASSIUM 3.3 mMol/L (3.7-5.1); TOTAL PROTEIN 7.1 g/dL (6.0-8.4)
[2016-12-11 05:30] LABS: TOTAL BILIRUBIN 0.2 mg/dL (0.0-1.5)
[2016-12-11 05:35] LABS: ABSOLUTE NEUTROPHIL CT (ANC) 12.8 K/uL (1.8-7.8); BANDED NEUTROPHIL # 3.2 K/uL (0.0-0.1); BANDED NEUTROPHILS % 24 %; LYMPHOCYTE # 0.5 K/uL (0.8-4.0); LYMPHOCYTE % 4 %; SEGMENTED NEUTROPHIL # 9.6 K/uL (1.8-7.8); SEGMENTED NEUTROPHIL % 72 %
--- NOTE | 2016-12-11 16:38 | NUR ---
Significant Event: Patient alert and oriented x3. IV in R) FA running NS at 150ml/hr. Up with SBA with gaitbelt-Hx of falls. C/O pain 6-7/10 in R) side neck that radiates up right side of face and across upper back. R) side of face continues to be slightly edamatous. Also C/O moderate anxiety-used aroma therapy/heat therapy. Morphine 2mg x2 given last at 1345 and [place] 2 tabs last at 1517. Patient is ACHS Accuchecks but is not diabetic- BG 146, 180 today. Potassium level 3.3 this AM- new order for KCl 20mEq PO BID today. Follow up: Continue to monitor pain.
--- NOTE | 2016-12-11 17:39 | NUR ---
I have reviewed and agree with charting done by Florina Sheehan, [facility] student nurse for the shift from [phone].
[2016-12-12 04:08] LABS: BASOPHIL % 0.1 %; HEMATOCRIT 28.8 % (33.0-46.0); HEMOGLOBIN 8.8 g/dL (10.0-15.0); IMMATURE GRANULOCYTE # 0.1 K/uL (0.0-0.3); IMMATURE GRANULOCYTE % 1.1 %; LYMPHOCYTE # 0.9 K/uL (0.8-4.0); LYMPHOCYTE % 8.3 %; MCH 25.4 pg (27.0-34.0); MCHC 30.6 gm/dL (32.0-36.5); MCV 83.2 fl (83.0-98.0); MONOCYTE # 0.7 K/uL (0.0-1.0); MONOCYTE % 6.1 %; MPV 10.4 fl (9.4-12.4); NEUTROPHIL % 84.4 %; NRBC % 0 /100WBC (0-0.00); PLATELET COUNT 280 K/uL (150-450); RBC 3.46 M/uL (3.50-5.50); RDW-CV 17.8 % (11.9-14.6); WBC 10.6 K/uL (4.0-11.0)
[2016-12-12 04:19] LABS: ANION GAP 13.6 (10.0-19.0); CALCIUM 7.8 mg/dL (8.5-10.5); CREATININE 1.2 mg/dL (0.5-1.1); POTASSIUM 3.6 mMol/L (3.7-5.1)
--- NOTE | 2016-12-12 04:34 | NUR ---
Significant Event:Patient very agitated at start of shift, crying and carrying on. States she needs something for anxiety. Call MD and got an order for ativan. This seemed to help. Morphine 2mg and 2 [place] given at 0300 for right neck and facial pain. Up to bathroom with stand-by assist refuses gait-belt. Follow up:Continue to monitor.
[2016-12-12] MEDS ORDERED: ZANAFLEX4 MG PO (12:11)
[2016-12-12] MEDS ORDERED: NEURONTIN300 MG PO (12:11)
[2016-12-12] MEDS ORDERED: DELTASONE20 MG PO (12:13)
--- NOTE | 2016-12-12 12:30 | NUR ---
Met patient at bedside today. Introduced myself and the role of the CM department. Patient states she lives in an apartment on the third floor and it does not have an elevator. She has a dog that she takes outside multiple times a day. Her daughter and her family lives across the street from her apartment. Patient's goal is to return home when she is medically cleared for discharge. She denies any discharge needs at this time and states her daughter and family are able to assist her as needed. CM will continue to follow and offer supports as needed.
--- NOTE | 2016-12-12 16:05 | NUR ---
Significant Event: Patient up with standby assist. [place]/morphine given last at 1305 and patient is due at 1700. Currently patient is sleeping. IV saline locked per orders. Patient given dose of MOM for her bowels at 1305, if no BM in 4 hours, dose may be repeated. Ativan last given at 0607. Last dose of rocephin IV is tonight and then patient is going to switch to oral antibiotics in a.m. Likely home tomorrow. Follow up: Continue to monitor.
--- NOTE | 2016-12-13 03:19 | NUR ---
Significant Event: PT AO. VSS ON RA, AFEBRILE. SALINE LOCK TO R WRIST. UP WITH SUPERVISION. ACHS ACCUCHECKS, WAS 73 @ 2100, ENCOURAGED TO EAT A SNACK- PT HAD TOAST. C/O PAIN TO R NECK/FACE. PRN NORCO AND MORPHINE X2, LAST AT 0315. PT SLEPT WELL FOR ABOUT 5HR THIS SHIFT. NO BM. HAD MILK OF MAG X2 ON PREVIOUS SHIFT. PROBABLY NEEDS A SUPPOSITORY TODAY. Follow up: SUPPOSITORY, PAIN CONTROL, ANXIETY
[2016-12-13] MEDS ORDERED: KEFLEX500 MG PO (09:49)
[2016-12-13] MEDS ORDERED: PROTONIX40 MG PO (09:50)
[2016-12-13] MEDS ORDERED: NORCO 5-325 TA1 EACH PO (09:54)
--- NOTE | 2016-12-13 15:45 | NUR ---
DISCHARGE: D: ORDER RECEIVED THIS AM FOR THE PATIENT TO BE DISCHARGE, PRIOR TO DISCHARGE PATIENT WAS GAVE RECTAL SUPPOSITORY AND A FLEETS ENEMA TO ASSIST WITH A BOWEL MOVEMENT PRIOR TO DISCHARGE. I: DISMISSAL INSTRUCTIONS WERE PREPARED AND REVIEWED WITH THE PATIENT VIRTUALLY. THE FOLLOWING INFORMATION WAS DISCUSSED INCLUDING CECILIO TEACHING SHEETS PROVIDED: E.COLI INFECTION, UNDERSTANDING SEPSIS, TREATING CONSTIPATION KEFLEX, NORCO, AND PREVENTING DVT. DR. EPSTEIN WAS CALLED JUST PRIOR TO DISCHARGE DO TO PATIENT REQUEST A PRESCRIPTION FOR ATIVAN. DR. EPSTEIN CALLED A SMALL PRESCRIPTION INTO [facility] AND IF THE PATIENT NEEDS MORE SHE WILL NEED TO FOLLOW UP WITH DR. ROMERO ON MONDAY. R: THE PATIENT VERBALIZED UNDERSTANDIN OF THE DISMISSAL EDUCATION AT THE TIME OF TEACHING WITH NO FURTHER QUESTIONS. P: THE ABOVE INFORMATION WAS SHARED WITH THE PRIMARY NURSE AND THE CHARGE NURSE THAT THE PATIENT'S DISMISSAL EDUCATION WAS COMPLETED. THE PATIENT IS READY FOR DISCHARGE TO THE FRONT DOOR VIA WHEEL CHAIR BY NURSING STAFF.
== END 2016-12-13 16:45 | disposition disaster alternative care site (69) | DRG 872 ==
LOC: GMED 17:20 → GMSU 20:29
PROVIDERS: Emergency Medicine; Family Medicine; ADMIT Family Medicine
DX: A41.51 Sepsis due to Escherichia coli [E. coli] (principal); I10 Essential (primary) hypertension; N39.0 Urinary tract infection, site not specified; M54.2 Cervicalgia; F41.8 Other specified anxiety disorders; Z91.14 Patient's other noncompliance with medication regimen; K21.9 Gastro-esophageal reflux disease without esophagitis; B96.20 Unspecified Escherichia coli [E. coli] as the cause of diseases classified elsewhere
CPT/HCPCS: J0696; J2060; J2270; J2405; J2920; J7030; J7040; J7050

== ENCOUNTER → 2016-12-14 | Outpatient (CLI) | payer MEDICARE, MEDICAID ==
[~2016-12-14] MED LIST changes: +DELTASONE20 MG PO; +DEXILANT60 MG PO; +KEFLEX500 MG PO; +NEURONTIN300 MG PO; +NORCO 5-325 TA1 EACH PO; +PROTONIX40 MG PO; +TRINTELLIX 10 PO; +ZANAFLEX4 MG PO
== END | disposition disaster alternative care site (69) ==
LOC: GRAD 14:53
DX: M54.2 Cervicalgia (principal); M47.892 Other spondylosis, cervical region

== ENCOUNTER 2017-02-05 09:53 | Emergency (ER) | payer MEDICARE, MEDICAID ==
--- NOTE | ~2017-02-05 | ER ---
PATIENT'S NAME: TROY DAIGLE [facility] AGE: 61 Y [address] ROOM: [place] [address] LOCATION: [facility] ADMIT DATE: 02/05/2017 ER/Outpatient Report DISCHARGE DATE: 02/05/2017 FAMILY PHYSICIAN: Roddy Ríos MD ATTENDING PHYSICIAN: Cricket Mckenzie Time of Arrival: 0953 hours Time of Evaluation: 0954 hours CHIEF COMPLAINT: Headache. HISTORY OF PRESENT ILLNESS: The patient is a 61-year-old female who presents to the emergency department today with a chief complaint of headache. She reports she also has neck pain with this. The patient has a long history of chronic neck pain that causes her headaches. She reports that this pain came on last night. Denies any fevers. Does have some chills. Does have some nausea. No vomiting. No diarrhea or constipation. Does have some photophobia. It is a dull pain. It is currently mild to moderate in severity. She also has episodes of sharpness back of her neck. It is worse with movement. The patient denies this is the worst headache of her life. There is no thunderclap headache. It is not sudden onset. PAST MEDICAL HISTORY: Chronic neck problems, migraines, fibromyalgia, panic disorder, depression, gastroesophageal reflux disease, arthritis, and hypertension. PAST SURGICAL HISTORY: Cataracts. SOCIAL HISTORY: The patient denies any tobacco, alcohol, or illicit drug use. ALLERGIES: IMITREX AND CODEINE. MEDICATIONS: Please see list. PRIMARY CARE DOCTOR: Jose Rafael Weems MD REVIEW OF SYSTEMS: All systems are reviewed by myself and negative with the exception of those PATIENT'S NAME: TROY DAIGLE [facility] AGE: 61 Y [address] ROOM: [place] [address] LOCATION: ED ADMIT DATE: 02/05/2017 ER/Outpatient Report DISCHARGE DATE: 02/05/2017 FAMILY PHYSICIAN: Roddy Ríos MD ATTENDING PHYSICIAN: Cricket Mckenzie discussed in HPI and past medical history. PHYSICAL EXAMINATION: VITAL SIGNS: Weight 92.3 kg, blood pressure 195/101, pulse 62, respiratory rate 18, temperature 97.9, oxygen saturation 99% on room air. GENERAL: The patient is a 61-year-old female, appears stated age, in no acute distress. Well developed, well nourished. HEENT. Head: Normocephalic, atraumatic. Pupils are equal, round, and reactive to light. Extraocular motions are intact. Nares are patent bilaterally. Oropharynx is clear. NECK: Supple. She does have tenderness to palpation in bilateral paraspinal musculature. There is no nuchal rigidity. CARDIOVASCULAR: Regular rate and rhythm. No murmurs, rubs, or gallops. LUNGS: Clear to auscultation bilaterally. No wheezes, rales, or rhonchi. ABDOMEN: Soft, nontender, and nondistended. No rebound, rigidity, or guarding. MUSCULOSKELETAL: The patient moves all 4 extremities. Ambulates with steady gait. SKIN: Warm and dry. No rashes or lesions noted. LABORATORY DATA AND X-RAYS: None. IMPRESSION: 1. Acute on chronic neck pain. 2. Initial visit. EMERGENCY DEPARTMENT COURSE: The patient was brought back to the examination room. Seen and evaluated by myself. History and physical are performed as described above. I have discussed results with history and physical with the patient. She reports she has seen Dr. Hair for her neck. They are attempting conservative treatments. She does report she has an appointment with Dr. Gordillo for a neck injection. She does report she is out of her Zanaflex. She is requesting a refill. I have written a prescription for Zanaflex for home. I have discussed return to care instructions including worsening symptoms or any other concerns to return to the emergency department as soon as possible. I have asked she follows up with the primary care doctor in two three days for re-evaluation as well. The patient is agreeable without further questions. DISPOSITION: The patient discharged to home in good condition. PATIENT'S NAME: TROY DAIGLE [facility] AGE: 61 Y [address] ROOM: [place] [address] LOCATION: ED ADMIT DATE: 02/05/2017 ER/Outpatient Report DISCHARGE DATE: 02/05/2017 FAMILY PHYSICIAN: Roddy Ríos MD ATTENDING PHYSICIAN: Cricket Mckenzie DO VIOLETTA HOBSON/modl /[id number] d: 02/05/17 1852 t: 02/10/17 0649, OUTPATIENT REPORT
== END 2017-02-05 10:30 | disposition disaster alternative care site (69) ==
LOC: GMED 09:53
DX: G89.29 Other chronic pain (principal); M54.2 Cervicalgia; I10 Essential (primary) hypertension; F41.0 Panic disorder [episodic paroxysmal anxiety]; F32.9 Major depressive disorder, single episode, unspecified; M19.90 Unspecified osteoarthritis, unspecified site; M79.7 Fibromyalgia; K21.9 Gastro-esophageal reflux disease without esophagitis; Z88.5 Allergy status to narcotic agent; Z88.8 Allergy status to other drugs, medicaments and biological substances; Z79.1 Long term (current) use of non-steroidal anti-inflammatories (NSAID); Z79.899 Other long term (current) drug therapy
CPT/HCPCS: J1885

== ENCOUNTER 2017-02-06 13:01 | Emergency (ER) | payer MEDICARE, MEDICAID ==
--- NOTE | ~2017-02-06 | ER ---
PATIENT'S NAME: TROY DAIGLE [facility] AGE: 61 Y [address] ROOM: [place] [address] LOCATION: [facility] ADMIT DATE: 02/06/2017 ER/Outpatient Report DISCHARGE DATE: 02/06/2017 FAMILY PHYSICIAN: PHYSICIAN, NO ATTENDING PHYSICIAN: Rhonda Ayala Time of Arrival: 1311. Time of Evaluation: 1311 pm. CHIEF COMPLAINT: Headache and neck pain. HISTORY OF PRESENT ILLNESS: The patient states she has been having problems with a headache for the last 7 days. Has had neck problems. Does have a history of neck problems that causes headaches. This pain is similar to what she has had before. She states she has had some chills off and on. Has been nauseated, but no vomiting. She was here last night. Got some Toradol and Valium. She is scheduled to see Dr. Apodaca for epidural injection on . She states she has taken some ibuprofen without any relief. She reports that she is supposed to be wearing a collar but she feels like the collar makes things worse so she has not been wearing it. ALLERGIES: CODEINE, IMITREX. PAST MEDICATIONS: Are on her chart and reviewed by me. PAST MEDICAL HISTORY: Cervical disk disease C5, C6, and C7; migraine headaches; hypertension; depression fibromyalgia. PAST SURGERY: Shoulder surgery, appendectomy, gastric bypass, bilateral knee replacements. Reports she is postmenopausal. Denies the use of tobacco, drugs, or alcohol. REVIEW OF SYSTEMS: Negative other than those mentioned in the HPI. PHYSICAL EXAMINATION: VITAL SIGNS: She weighed 95.5 kg. Blood pressure was 189/81, pulse of 56, respirations 20, temperature of 98.4 tympanic, O2 saturation was 98% on room air. Yvonne Coma Scale is 15. GENERAL: She is awake, alert, and oriented x4. She moves all extremities PATIENT'S NAME: TROY DAIGLE [facility] AGE: 61 Y [address] ROOM: [place] [address] LOCATION: [facility] ADMIT DATE: 02/06/2017 ER/Outpatient Report DISCHARGE DATE: 02/06/2017 FAMILY PHYSICIAN: PHYSICIAN, NO ATTENDING PHYSICIAN: Rhonda Ayala strongly and equally. SKIN: [place], warm, and dry. RESPIRATIONS: Even and nonlabored. HEENT: Pupils are equal reactive to light. Extraocular movement is intact. TMs are pearly kyle. Nasal is boggy. Oropharynx is clear. NECK: Supple. No lymphadenopathy. LUNGS: Lung sounds are clear throughout. HEART: Regular rate and rhythm. ABDOMEN: Soft, nondistended. Bowel sounds are present. EMERGENCY DEPARTMENT COURSE: Saline lock was initiated. Fluids of normal saline was started. She was given Toradol 15 mg IV, Benadryl 50 mg IV, and Compazine 10 mg IV. She rested quietly in the room. Fluids were allowed to infuse. Did have some relief on discharge. IMPRESSION: Migraine headache. PLAN: Home, rest, fluids. Keep her scheduled appointment on . She verbalized understanding. BONY BROWN APRN FOR MD ANNIE KAHN/candi /[id number] d: 02/07/17 0013 t: 02/08/17 2043, OUTPATIENT REPORT
== END 2017-02-06 14:49 | disposition disaster alternative care site (69) ==
LOC: GMED 13:01
DX: G43.909 Migraine, unspecified, not intractable, without status migrainosus (principal); I10 Essential (primary) hypertension; M79.7 Fibromyalgia; F32.9 Major depressive disorder, single episode, unspecified; Z88.5 Allergy status to narcotic agent; Z88.8 Allergy status to other drugs, medicaments and biological substances; Z79.899 Other long term (current) drug therapy
CPT/HCPCS: J0780; J1200; J1885; J7030